=== PATIENT | male | born 1970 | race Caucasian/White ===

== ENCOUNTER 2019-06-06 20:24 | Inpatient (IN) | payer BC ==
[2019-06-06] MEDS: THIAMINE 100 MG TAB PO (01:35)
[2019-06-06] MEDS: FOLIC ACID 1 MG TAB PO (01:35)
[2019-06-06] MEDS: ASPIRIN 325 MG TAB PO (21:11)
[2019-06-06] MEDS: LORAZEPAM 2 MG INJ IV (21:11)
[2019-06-06] MEDS: NITROGLYCERIN 2% 1 GM OINT PKT TD (21:15)
[2019-06-06 21:17] LABS: WHITE BLOOD COUNT 6.5 10^3/ul (4.8-10.8)
[2019-06-06 21:17] LABS: HEMATOCRIT 39.1 % (42.0-52.0); HEMOGLOBIN 14.2 g/dl (14.0-18.0); MEAN CORPUSCULAR HEMOGLOBIN 30.3 pg (29.0-33.0); MEAN CORPUSCULAR HGB CONC 36.3 g/dl (32.0-37.0); MEAN CORPUSCULAR VOLUME 83.4 fl (82.0-101.0); MEAN PLATELET VOLUME 8.9 fl (7.4-10.4); PLATELET COUNT 252 10^3/UL (140-415); POSITIVE DIFF @See below; RED BLOOD COUNT 4.69 10^6/ul (4.70-6.10); RED CELL DISTRIBUTION WIDTH 12.5 % (11.5-14.5)
[2019-06-06 21:21] LABS: ADD MAN DIFF? YES
[2019-06-06 22:03] LABS: ANION GAP 18 (5-13); BLOOD UREA NITROGEN 10 mg/dl (7-20); CALCIUM 9.2 mg/dl (8.4-10.2); CARBON DIOXIDE 19 mmol/L (21-31); CHLORIDE 97 mmol/L (97-110); CREATININE 0.73 mg/dl (0.61-1.24); Estimated GFR > 60 mL/min (>60); POTASSIUM 4.7 mmol/L (3.5-5.1); SODIUM 134 mmol/L (135-144)
[2019-06-06 22:06] LABS: GLUCOSE 408 mg/dl (70-220)
[2019-06-06 22:15] LABS: TROPONIN-I < 0.012 ng/ml (0.000-0.120)
[2019-06-06 22:30] LABS: MODE ROOM AIR; MetHgb Venous 0.3 %; Sample Type Blood venous; Site VENOUS LINE; Venous COHb 0.3 %; Venous Fraction OxyHgb 86.7 %; Venous Oxygen Sat 87.2 mmHG (55.0-75.0); Venous Total Hemglobin 14.3 g/dl
[2019-06-06 22:32] LABS: ADD UMIC NO; MAGNESIUM 1.8 mg/dl (1.7-2.5); UR ASCORBIC ACID NEGATIVE (NEGATIVE); UR BILIRUBIN (Dip) NEGATIVE (NEGATIVE); UR BLOOD (Dip) NEGATIVE (NEGATIVE); UR CLARITY CLEAR (CLEAR); UR COLOR COLORLESS (YELLOW); UR GLUCOSE (Dip) 3+ mg/dL (NEGATIVE); UR KETONES (Dip) TRACE mg/dL (NEGATIVE); UR LEUKOCYTE ESTERASE (Dip) NEGATIVE Leu/ul (NEGATIVE); UR NITRITE (Dip) NEGATIVE (NEGATIVE); UR SPECIFIC GRAVITY (Dip) 1.013 (1.003-1.030); UR TOTAL PROTEIN (Dip) NEGATIVE (NEGATIVE); UR UROBILINOGEN (Dip) NEGATIVE (NEGATIVE)
[2019-06-06 22:32] LABS: PHOSPHORUS 4.2 mg/dl (2.5-4.9)
[2019-06-06 22:35] LABS: ANISOCYTOSIS 1+ (0-0); BAND NEUTROPHILS % (M) 1 % (0-4); BASOPHIL #M 0.1 10^3/ul (0.0-0.0); BASOPHILS % (M) 2 % (0-2); EOSINOPHILS % (M) 9 % (0-7); ERYTHROBLAST% (NRBC) (M) 1 % (0-0); GIANT THROMBO% (M) 1 % (0-0); LYMPHOCYTES #M 1.3 10^3/ul (0.8-2.9); LYMPHOCYTES % (M) 21 % (15-51); MICROCYTOSIS 1+ (0-0); MONOCYTES % (M) 1 % (0-11); PLATELET ESTIMATE NORMAL; REACTIVE LYMPHOCYTES #M 0.1 10^3/ul (0.0-0.0); REACTIVE LYMPHOCYTES% (M) 3 % (0-0); SEG NEUT #M 4.1 10^3/ul (1.6-7.5); SEGMENTED NEUTROPHILS (M) % 63 % (39-77); SMUDGE%M 151 % (0-0)
[2019-06-06] MEDS ORDERED: ACETAMINOPHEN 325 MG TAB PO (23:00)
[2019-06-06] MEDS ORDERED: ONDANSETRON 4 MG INJ IV (23:00)
[2019-06-06] MEDS: ACCU-CHEK XX (23:00)
[2019-06-06] MEDS: SOD CHLORIDE 0.9% 1,000 ML IV (23:03)
[2019-06-06] MEDS: INSULIN LISPRO 100 UNIT/ML VIAL SC (23:26)
[2019-06-07] MEDS ORDERED: GLUCAGON 1 MG INJ IM (04:00)
[2019-06-07] MEDS ORDERED: GLUCOSE GEL 15 GRAM TUBE BUCCAL (04:00)
[2019-06-07] MEDS ORDERED: GLUCOSE GEL 15 GRAM TUBE PO ×2 (04:00)
[2019-06-07] MEDS ORDERED: ACETAMINOPHEN 325 MG TAB PO (04:00)
[2019-06-07] MEDS ORDERED: ONDANSETRON 4 MG INJ IV (04:00)
[2019-06-07] MEDS ORDERED: morphine 2 MG INJ IV (04:00)
[2019-06-07] MEDS ORDERED: DEXTROSE 50% 50 ML SYRINGE IV ×2 (04:00)
[2019-06-07 04:27] LABS: CREATINE KINASE 88 IU/L (23-200)
[2019-06-07 04:40] LABS: CK INDEX 0.3; CK-MB < 0.22 ng/ml (0.0-2.4); TROPONIN-I < 0.012 ng/ml (0.000-0.120)
[2019-06-07 08:17] LABS: CREATINE KINASE 97 IU/L (23-200)
[2019-06-07] MEDS: ASPIRIN 81 MG TAB PO (08:22)
[2019-06-07 08:29] LABS: CK INDEX 0.5; CK-MB 0.49 ng/ml (0.0-2.4); TROPONIN-I < 0.012 ng/ml (0.000-0.120)
[2019-06-07] MEDS: Insulin NOVOLOG SS MODERATE Algorithm (SS with meals and bedtime) SC ×3 (08:37→17:38)
[2019-06-07] MEDS: REGADENOSON 0.4 MG/5 ML SYG (15:50)
[2019-06-07] MEDS ORDERED: ATORVASTATIN 20 MG TAB PO (21:00)
[2019-06-08] MEDS ORDERED: EMPAGLIFLOZIN 10 MG TABLET PO (08:00)
== END 2019-06-07 18:55 | disposition home or self-care (01) | DRG 313 ==
LOC: 6WM 22:52 → E/R 20:24 → 6WM 06-07 04:11
PROC: C22G1ZZ Tomographic (Tomo) Nuclear Medicine Imaging of Myocardium using Technetium 99m (Tc-99m) (ICD-10-PCS; principal; 2019-06-07)
DX: R07.9 Chest pain, unspecified (principal); I10 Essential (primary) hypertension; E11.9 Type 2 diabetes mellitus without complications; Z91.11 Patient's noncompliance with dietary regimen; F10.20 Alcohol dependence, uncomplicated; E78.5 Hyperlipidemia, unspecified
CPT/HCPCS: 36415; 71045; 78452; 80048; 81003; 82550; 82553; 82803; 82962; 83735; 84100; 84484; 85025; 93005; 93017; 93306; 96374; 99285-25